=== PATIENT | female | born 1935 | race Caucasian/White ===

== ENCOUNTER 2024-03-05 17:36 | Emergency (ER) | payer MEDICARE ==
[~2024-03-05] VITALS: Ht 170.2 cm; Wt 63.6 kg
[2024-03-05] MEDS ORDERED: Ondansetron 4 MG/2 ML VIAL IV ONE (21:15)
[2024-03-05] MEDS ORDERED: Morphine 4 MG/ML VIAL IV ONE (21:15)
[2024-03-05] MEDS ORDERED: PERCOCET 325 MG1 TA2 PO (21:34)
[2024-03-05] MEDS ORDERED: Home oxyCODONE/Acetaminophen 5/325 MG #4 TAB/PACK PO ONE (21:45)
[2024-03-05 22:00] VITALS: BP 154/75; PULSE 73; TEMP 98.5
[2024-03-06] MEDS ORDERED: PERCOCET 325 MG1 TA2 PO (11:19)
== END 2024-03-05 22:00 | disposition home or self-care (01) ==
LOC: COL.ER 17:36
DX: S32.591A Other specified fracture of right pubis, initial encounter for closed fracture (principal); W10.9XXA Fall (on) (from) unspecified stairs and steps, initial encounter; Y93.01 Activity, walking, marching and hiking